=== PATIENT | female | born 1955 | race Caucasian/White ===

== ENCOUNTER → 2018-06-03 08:27 | Outpatient (CLI) | payer OTHER, SELFPAY ==
--- NOTE | 2018-06-03 | DI.MG.S_ITS ---
BILATERAL DIGITAL SCREENING MAMMOGRAM 3D/2D WITH CAD: 06/03/2018 CLINICAL: Routine screening. Comparison is made to exams dated: 05/27/2017 mammogram, 08/13/2015 mammogram, and 05/23/2013 mammogram - [facility]. The tissue of both breasts is heterogeneously dense. This may lower the sensitivity of mammography. Current study was also evaluated with a Computer Aided Detection (CAD) system. No significant masses, calcifications, or other findings are seen in either breast. There has been no significant interval change. IMPRESSION: NEGATIVE There is no mammographic evidence of malignancy. A 1 year screening mammogram is recommended. This exam was interpreted at Station ID: [id number]. NOTE: For mammograms, a report in lay terms will be sent to the patient. Approximately 15% of breast malignancies will not be visualized mammographically. In the management of a palpable breast mass, a negative mammogram must not discourage biopsy of a clinically suspicious lesion. Electronically Signed By: Juan chao/vicenta:06/05/2018 09:38:37 letter sent: Normal Exam ACR BI-RADS Category 1: Negative [id number]
== END ==
PROVIDERS: PCP Family Medicine; Visit Provider Family Medicine
DX: Z12.31 Encounter for screening mammogram for malignant neoplasm of breast (principal)
CPT/HCPCS: 77063; 77067

== ENCOUNTER → 2018-09-30 07:58 | Outpatient (CLI) | payer OTHER, SELFPAY ==
[2018-09-30 09:23] LABS: Add Manual Diff / Slide Review NO; Alanine Aminotransferase 17 IU/L (9-52); Albumin 4.3 g/dL (3.5-5.0); Albumin Globulin Ratio 1.5 (1.0-2.8); Alkaline Phosphatase 77 U/L (38-126); Aspartate Aminotransferase 17 IU/L (14-36); BUN Creatinine Ratio 14.4 (6-22); Basophils Absolute Auto 0 /uL (0-100); Basophils Percent Auto 0.6 % (0-2); Bilirubin Total 0.4 mg/dL (0.2-1.3); Blood Urea Nitrogen 13 mg/dL (7-17); Calcium 9.7 mg/dL (8.4-10.2); Carbon Dioxide 29 mmol/L (22-32); Chloride 104 mmol/L (98-107); Cholesterol 250 mg/dL (140-199); Eosinophils Absolute Auto 100 /uL (0-450); Eosinophils Percent Auto 3.3 % (2-4); Estimated Glomerular Filt Rate > 60.0 mL/min (>60); Globulin 2.9 g/dL (1.7-4.1); Glucose 97 mg/dL (80-110); HDL Cholesterol 55 mg/dL (40-60); HEMOLYSIS < 15 (0-50); Hematocrit 38.5 % (36-46); Hemoglobin 13.6 g/dL (12.0-16.0); LDL Cholesterol Calculated 164 mg/dL (<100); Lymphocytes Absolute Auto 900 /uL (1100-4500); Mean Corpuscular HGB Conc 35.3 % (30-36); Mean Corpuscular Hemoglobin 29.1 PG (26-34); Mean Corpuscular Volume 82.4 fL (80-100); Monocytes Absolute Auto 400 /uL (0-900); Monocytes Percent Auto 14.1 % (3-14); Neutrophils Absolute Auto 1600 /uL (1500-7000); Platelet Count 258 X10^3/uL (150-400); Potassium 4.4 mmol/L (3.4-5.1); Red Blood Cell Count 4.68 X10^6/uL (4.0-5.2); Red Cell Distribution Width 12.7 % (11.6-14.8); Sodium 141 mmol/L (137-145); Total Protein 7.2 g/dL (6.3-8.2); Triglycerides 156 mg/dL (35-150); White Blood Cell Count 3.1 X10^3/uL (4.5-11.0)
[2018-09-30 09:57] LABS: Ferritin 48.4 ng/mL (11.1-264)
[2018-09-30 10:05] LABS: Free T3, Triiodothyronine Free 3.09 pg/mL (2.77-5.27); Free T4, Direct Thyroxine 1.42 ng/dL (0.78-2.19)
[2018-09-30 10:18] LABS: Thyroid Stimulating Hormone 0.08 uIU/mL (0.47-4.68)
[2018-10-03 15:33] LABS: Thyroid Peroxidase Antibodies 1 IU/mL (< 9)
== END ==
PROVIDERS: PCP Family Medicine; Visit Provider Naturopath
DX: Z00.00 Encounter for general adult medical examination without abnormal findings (principal); E03.9 Hypothyroidism, unspecified; R53.83 Other fatigue
CPT/HCPCS: 36415; 80053; 80061; 82728; 84439; 84443; 84481; 85025; 86376

== ENCOUNTER 2018-10-31 10:30 | Outpatient (RCR) | payer OTHER, SELFPAY ==
--- NOTE | 2018-10-23 17:23 | ST.OPIE ---
Provider Information Visit Care Team Role Provider Type Kaye Mckinney MD Primary Care Provider Non-Staff Specialty: Family Practice Address: [address] [place] [address], [phone] Email: Rafa Grier MD Attending Provider Physician Specialty: Ear, Nose, Throat Address: [address] [place] [address], [id number] Email: Speech-Language Pathology Initial Evaluation INDUSTRIAL ENGINEERING Voice Resonance Evaluation Start: 08/31/18 15:12 Freq: Status: Active Protocol: Document 08/31/18 15:16 LNK (Rec: 08/31/18 16:30 LNK [id number]) Voice and Resonance Assessment Session Time Visit Start Time 13:30 Visit Stop Time 14:30 Total Visit Minutes 60 Visit Information Visit Number Plan of Care Dates 08/31/18-12/04/18 Insurance Information [employer] Next Note Type Next Note Type Treatment Note Referral Referring Physician Dr. Rafa Grier, ENT PCP Kaye Martinez MD Reason for Referral hoarseness Setting Setting Outpatient Care Patient History General Information Geetha is a 62 year old female referred for a voice evaluation secondary to a hoarse voice that is not improving. Geetha saw Dr. Grier for evaluation of her vocal folds in early June 2018. According to the pt, Dr Luis Eduardo Grier said, at that time, that her vocal folds appeared to be within normal expectations. He recommended omneprozol for GERD (silent) 2x/day. Geetha reported that she has not been taking the omneprozol consistently and has recently stopped taking it as there did not seem to be an improvement. 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 Oral-Motor Eval Completed Informal observation Oral-Motor Assessment WFL - Laryngeal Performance S/Z Ratio S/Z Ratio 1.27 (s=20.24 z=15.90) Functional for Speech Yes Reduced Laryngeal Function Relative to Yes Respiration Voice Handicap Index Function Subtotal 10 Physical Subtotal 18 Emotional Subtotal 11 Total Score 39 Severity Moderate (31-60) CAPE-V Overall Severity 70 Roughness 30 Breathiness 80 Strain 20 Pitch 61 Loudness 70 Normal Resonance? No: oronasal Additional Features Glottal Wilson Pitch Instability Maximum Phonation Time MPT Norms: Women (15-25) Men (25-35) Loudness (50-60 dB); Speaking Rate: Oral Reading of Sentences (190 Words Per Minute); Oral Reading of Paragraphs (160-170 WPM); Speaking Rate in Conversation (150-250 WPM) Maximum Phonation Time 9.8 sec Maximum Phonation Time Reduced Jitter/Shimmer Norms: Jitter (Less than or equal to 1.040% - Frequency) Norms: Shimmer (Less than or equal to 3.810% - Amplitude) Jitter 1.55% Shimmer 6.16% Pitch [place] Pitch [place] Pitch Breaks Reduced Range Tension Cessation of Voicing Muscle Tension Assessment Muscle Tension Assessment Jaw Shoulders Breath Support Breath Support At Rest Thoracic Breath Support Sustained Phonation Thoracic Breath Support Conversation Comment reduced Speaks on Room Air Yes Postural Alignment Stance Balanced Shoulders Symmetrical Voice Pitch Range Norms: Women (100-300 Hz) Men (70-250 Hz) Fundamental Frequency Norms: Women (Mean: 225 Hz; Range: 155-334 Hz) Men ( Mean: 128 Hz; Range: 85-196 Hz) Voice Pitch Moderately Low Voice Loudness Moderately Soft/Quiet Voice Phonatory-based Quality Breathy Hoarse Weak Glottal Wilson Fundamental Frequency 154.6 Paradoxical Vocal Fold Movement No Indications Resonance Nasal Resonance Normal Oral Resonance Normal Other Observations Inadequate Breath Support Therapeutic Techniques Therapy Tactics Shifting Tone Focus Breath Support Findings Findings Moderate Impairment Observations 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 Her voice is hoarse and breathy, which impacts her ability to be able to speak all day in her job. She noted that she will fatigue her voice to where she becomes aphonic. Given the results of the Voice Handicap Index, her voice quality is physically difficult to produce and is effecting her emotionally. Prognosis Rehabilitation Potential Excellent - Recommendations Treatment Recommended Yes Treatment Frequency/Duration 1x/week Therapy Recommendations 1) Recommend that pt have videostroboscopy assessment of her vocal folds to determine the nature and etiology of her present vocal quality. Referral to Dr. Castillo, at [facility] is recommended for videostroboscopy. Short Term Goals Pt will be instructed in and adopt a diaphragmentic breathing pattern to increase breath support and vocal efficiency. Long-Term Goals pt's vocal quality will be WNL for pt's age/gender. Referrals Referrals ENT Patient/Caregiver Education Patient/Family Education Described results of evaluation Patient Understanding
--- NOTE | 2018-10-23 17:25 | ST.OPPOC ---
Care Team Visit Care Team Role Provider Type Kaye Mckinney MD Primary Care Provider Non-Staff Address: [address] [place] [address], [phone] Rafa Grier MD Attending Provider Physician Address: [address] [place] [address], [id number] Speech Pathology Plan of Care General Information Geetha is a 62 year old female referred fo a voice evaluation secondary to a hoarse voice that is not improving. Geetha saw Dr. Grier for evaluation of her vocal folds in early June 2018. According to the pt, Dr. Grier said, at that time, that her vocal folds appeared to be within normal expectations. He recommended omneprozol for GERD (silent) 2x/day. Geetha reported that she has not been taking the omneprozol consistently and has recently stopped taking it as there did not seem to be an improvement. Plan of Care Dates 08/31/18-12/04/18 Short Term Goals Pt will be instructed in and adopt a diaphragmentic breathing pattern to increase breath support and vocal efficiency. Accountant Bookkeeper Goals pt's vocal quality will be WNL for pt's age/ gender.
--- NOTE | 2018-10-24 12:32 | ST.OPPOC ---
Care Team Visit Care Team Role Provider Type Kaye Mckinney MD Primary Care Provider Non-Staff Address: [address] [place] [address], [phone] Rafa Grier MD Attending Provider Physician Address: [address] [place] [address], [phone] Speech Pathology Plan of Care General Information Geetha is a 62 year old female referred for a voice evaluation by Dr. Grier. According to the pt, Dr. Grier said, at that time, that her vocal folds appeared to be within normal expectations. He recommended omneprozol for GERD (silent) 2x/day. Geetha reported that she has not been taking the omneprozol consistently and has recently stopped taking it as there did not seem to be an improvement. 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 Her voice is hoarse and breathy, which impacts her ability to be able to speak all day in her job. She noted that she will fatigue her voice to where she becomes aphonic. Given the results of the Voice Handicap Index, her voice quality is physically difficult to produce and is effecting her emotionally. Data taken during the assessment: S/Z = 1.25 Voice handicap = Moderate CAPE-V = 70% MPT = 9.8 Jitter. = 1.5 Shimmer = 6.16 Fo =154.6 Visit Number 2 Plan of Care Dates 08/31/18-12/04/18 Patient Comments Pt was on time. pt brought with her pictues of her vocal folds from [facility] on 10/02/18. Chief Complaint(s) Voice Rehabilitation Expectation/ Improve vocal quality to WFL Goals: Patient Goals Patient Knowledge/Awareness of Excellent HIGH SCHOOL HISTORY TEACHER Role in Treatment Short Term Goals Pt will establish and perform abdominal breathing pattern to increase breath support for voicing. Pt will demonstrate tone focus to improve overall resonance and reduce vocal fold effort with voicing. Pt will eliminate vocal reina quality in her voice for ~80% of speaking situations. Mcfp Goals Improve vocal quality to WFL Treatment Activities Reviewed with pt the report from [facility]. Pt reported that Dr. Marmolejo noted glottal gap posteriorly which may be related to LPR and or thyroid. The medial edge of both vocal folds appeared to be irregular and not smooth. Discussed the relationship of the larynx to the stomach and the characteristics of LPR. Introduced abdominal breathing to the pt. Use of diagrams and feedback via heavy book on abdomenwas used to increase pt's awareness of abdominal breathing without expansion of the thoracic cage. Pt was able to adequately demonstrate abdominal breathing without difficulty after ~ 10 minutes. HEP was provided and sent home with Pt. Rehabilitation Potential Good Impairments Identified Vocal Quality,Vocal Hygiene Reviewed with Patient Goals,Home Exercise Program Patient Understanding Excellent Length of Therapy Recommended 2-3 Months Treatment Frequency Once a Week Treatment Duration 45 Minutes Therapeutic Contents Voice Training Patient Recommendations Continue with Current Pro Please Sign and Return: I have reviewed this Plan of Care and certify that the skilled therapy services above are required to meet the patient?s needs. Physician Signature Date Printed Name and Credentials Clinical Instructor Signature Printed Name and Credentials
--- NOTE | 2018-10-24 12:34 | ST.OPTN ---
Care Team Visit Care Team Role Provider Type Kaye Mckinney MD Primary Care Provider Non-Staff Address: [address] [place] [address], [phone] Rafa Grier MD Attending Provider Physician Address: [address] [place] [address], [phone] TECHNICIAN TERMINAL AND REPEATER Treatment Note TECHNICIAN TERMINAL AND REPEATER Treatment Note Start: 08/31/18 15:12 Freq: Status: Active Protocol: Document 10/24/18 12:03 LNK (Rec: 10/24/18 12:31 LNK [id number]) Speech Pathology Treatment Note Session Time Visit Start Time 09:30 Visit Stop Time 10:15 Total Visit Minutes 45 Visit Information Visit Number 2 General Information General Information Geetha is a 62 year old female referred for a voice evaluation by Dr. Grier. According to the pt, Dr. Grier said, at that time, that her vocal folds appeared to be within normal expectations. He recommended omneprozol for GERD (silent) 2x/day. Geetha reported that she has not been taking the omneprozol consistently and has recently stopped taking it as there did not seem to be an improvement. At the evaluation, Geetha presented with a moderately- severe vocal quality disorder. Her voice is hoarse and breathy, which impacts her ability to be able to speak all day in her job. She noted that she will fatigue her voice to where she becomes aphonic. Given the results of the Voice Handicap Index, her voice quality is physically difficult to produce and is effecting her emotionally. Data taken during the assessment: S/Z = 1.25 Voice handicap = Moderate CAPE-V = 70% MPT = 9.8 Jitter. = 1.5 Shimmer = 6.16 Fo =154.6 Subjective Identification Type Name Identification Reconciled With Intake Sheet Observations/Patient Presentation Pt was on time. pt brought with her pictues of her vocal folds from [facility] on . Chief Complaint(s) Voice Rehab Expectation/Goals: Patient Goals Improve vocal quality to WF Patient Knowledge/Awareness of TECHNICIAN TERMINAL AND REPEATER Role Excellent in Treatment Objective Short Term Goals Pt will establish and perform abdominal breathing pattern to increase breath support for voicing. Pt will demonstrate tone focus to improve overall resonance and reduce vocal fold effort with voicing. Pt will eliminate vocal reina quality in her voice for ~80% of speaking situations. Chiller Operator Goals Improve vocal quality to [facility] Treatment Activities Reviewed with pt the report from [facility]. Pt reported that Dr. Marmolejo noted glottal gap posteriorly which may be related to LPR and or thyroid. The medial edge of both vocal folds appeared to be irregular and not smooth. Discussed the relationship of the larynx to the stomach and the characteristics of LPR. Introduced abdominal breathing to the pt. Use of diagrams and feedback via heavy book on abdomen was used to increase pt's awareness of abdominal breathing without expansion of the thoracic cage. Pt was able to adequately demonstrate abdominal breathing without difficulty after ~ 10 minutes. HEP was provided and sent home with Pt. Assessment Patient Response to Treatment Good Rehab Potential Good Impairments Identified Vocal Quality Vocal Hygiene Reviewed with Patient Goals Home Exercise Program Patient/Caregiver Understanding Excellent Plan Amount of Therapy Recommended 2-3 Months Frequency of Treatment Once a Week Length of Session 45 Minutes Therapeutic Contents Voice Training Provided Patient/Caregiver Instruction Home Exercise Program Plan of Care Questions/Concerns Therapy Recommendations Continue with Current Program
--- NOTE | 2018-10-31 11:41 | ST.OPDS ---
Care Team Visit Care Team Role Provider Type Kaye Mckinney MD Primary Care Provider Non-Staff Address: [address] [place] [address], [phone] Rafa Grier MD Attending Provider Physician Address: [address] [place] [address], [phone] SOLDER CREAM MAKER Treatment Note SOLDER CREAM MAKER Treatment Note Start: 08/31/18 15:12 Freq: Status: Active Protocol: Document 10/31/18 11:37 MG (Rec: 10/31/18 11:39 MG [id number]) Speech Pathology Treatment Note Visit Type Note Type Discharge Summary General Information General Information Geetha is a 62 year old female referred for a voice evaluation by Dr. Grier. According to the pt, Dr. Grier said, at that time, that her vocal folds appeared to be within normal expectations. He recommended omneprozol for GERD (silent) 2x/day. Geetha reported that she has not been taking the omneprozol consistently and has recently stopped taking it as there did not seem to be an improvement. At the evaluation, Geetha presented with a moderately- severe vocal quality disorder. Her voice is hoarse and breathy, which impacts her ability to be able to speak all day in her job. She noted that she will fatigue her voice to where she becomes aphonic. Given the results of the Voice Handicap Index, her voice quality is physically difficult to produce and is effecting her emotionally. Data taken during the assessment: S/Z = 1.25 Voice handicap = Moderate CAPE-V = 70% MPT = 9.8 Jitter. = 1.5 Shimmer = 6.16 Fo =154.6 Assessment Progress Towards Goals Appropriate for Discharge Assessment of Overall Progress Improving Reviewed with Patient Home Exercise Program Plan Frequency of Treatment No Further Therapy Provided Patient/Caregiver Instruction Home Exercise Program Questions/Concerns Therapy Recommendations Discharge to Home Exercise Program
== END 2018-11-02 11:01 | disposition home or self-care (01) ==
LOC: SP 10:30
PROVIDERS: PCP Family Medicine; Visit Provider Otolaryngology
DX: R49.0 Dysphonia (principal)
CPT/HCPCS: 92507; 92520; 92524

== ENCOUNTER → 2020-02-12 08:07 | Outpatient (CLI) | payer OTHER, SELFPAY ==
--- NOTE | 2020-02-12 | DI.US.S_ITS ---
PROCEDURE: US PELVIC COMPLETE INDICATIONS: PMB TECHNIQUE: Real-time scanning was performed of the pelvic organs, with image documentation. Additional endovaginal scanning was necessary due to incomplete visualization of the adnexal and endometrial structures by transabdominal scanning. COMPARISON: None. FINDINGS: Transabdominal scanning: Limited scanning through the kidneys shows no hydronephrosis. No pathologic free abdominal or pelvic fluid. Endovaginal scanning: Uterus: Uterus is normal in size at 5.2 x 2.6 x 4.3 cm. Along the left posterior uterus, there is a 9 mm intramural fibroid seen, with calcification The endometrium measures 5.1 mm in combined thickness. Ovaries: The right ovary measures 2.3 x 1.3 x 1.3 cm and demonstrates a 1.8 cm solid-appearing minimally echogenic nonvascular mass. The left ovary measures 2 x 0.9 x 1.8 cm and demonstrates a minimally echogenic nonvascular solid appearing mass that measures 1.5 cm. No adnexal masses are seen. IMPRESSION: The endometrial stripe is minimally thickened in this patient with a given history of postmenopausal bleeding. Differential diagnosis includes endometrial neoplasm and endometrial hyperplasia. Recommend correlation with endometrial histology, if clinically appropriate. Both ovaries demonstrate minimally echogenic internal masses, which are of unclear etiology and may be artifactual. A 9 mm uterine fibroid is incidentally noted, with calcification. Dictated by: Jimy Verma M.D. on 02/12/2020 at 9:10 Approved by: Jimy Verma M.D. on 02/12/2020 at 9:12
== END ==
PROVIDERS: PCP Family Medicine; Referring Provider Family Medicine; Visit Provider Family Medicine
DX: N95.0 Postmenopausal bleeding (principal); D25.1 Intramural leiomyoma of uterus
CPT/HCPCS: 76830; 76856